=== PATIENT | female | born 1970 | race Caucasian/White ===

== ENCOUNTER 2018-01-05 07:11 | Day surgery (SDC) | payer OTHER ==
[~2018-01-05] VITALS: Ht 154.9 cm; Wt 57.6 kg
[2018-01-05 08:16] LABS: UCG SCREEN NEGATIVE
[2018-01-05] MEDS ORDERED: MORPHINE SULFATE 4 MG/ML CPJ (NOT FOR IM USE) IV PRN (09:15)
[2018-01-05] MEDS ORDERED: HYDROMORPHONE HCL/PF 2MG/ML CPJ IV PRN (09:15)
[2018-01-05] MEDS ORDERED: ONDANSETRON HCL 4MG/2ML INJ IV PRN (09:15)
[2018-01-05] MEDS ORDERED: MEPERIDINE HCL/PF 25MG/ML CPJ IV PRN (09:15)
[2018-01-05] MEDS ORDERED: FENTANYL CITRATE/PF 50MCG/ML 2ML VIAL IV PRN (09:15)
[2018-01-05] MEDS ORDERED: METHYLPREDNISOLONE SOD SUCC 40 MG/ML VIAL ONE (09:18)
[2018-01-05] MEDS ORDERED: TOBRAMYCIN SULFATE 80MG/2ML 30ML ONE (09:18)
[2018-01-05] MEDS ORDERED: FERR325T6 PO (10:13)
[2018-01-05] MEDS ORDERED: OFLOXACIN 0.3% OPHTH SOLN 5ML ONE (14:27)
[2018-01-05] MEDS ORDERED: TETRACAINE 0.5% OPHTH DROPS 4ML ONE (14:27)
[2018-01-05] MEDS ORDERED: NEO/POLYMYX B SULF/DEXAMETH OPHTH OINT 3.5GM ONE (14:27)
[2018-01-05] MEDS ORDERED: LIDOCAINE HCL 2%/EPINEPHRINE 1:100,000 20 ML VIAL INFIL ONE (14:27)
[2018-01-05] MEDS ORDERED: BUPIVACAINE HCL/PF 0.75% (7.5MG/ML) 10ML ONE (14:27)
== END 2018-01-05 11:05 | disposition home or self-care (01) ==
LOC: OR 07:11
PROVIDERS: ATTEND Ophthalmology
DX: H11.002 Unspecified pterygium of left eye (principal); H40.1130 Primary open-angle glaucoma, bilateral, stage unspecified; E55.9 Vitamin D deficiency, unspecified; Z79.899 Other long term (current) drug therapy; Z98.51 Tubal ligation status
CPT/HCPCS: 65420; 71045; 81025; 82962; 88304; J2920; J3260; J3490; J7030

== ENCOUNTER 2018-07-12 08:16 | Day surgery (SDC) | payer OTHER ==
[~2018-07-12] VITALS: Ht 149.9 cm; Wt 52.6 kg
[~2018-07-12 08:16] MED LIST: CIPROFLOXACIN 0.3% OPHTH SOLN 2.5ML RIGHTEYE ONE; FERR325T6 PO
[2018-07-12] MEDS ORDERED: CIPROFLOXACIN 0.3% OPHTH SOLN 2.5ML RIGHTEYE SCH (09:00)
[2018-07-12 10:09] LABS: UCG SCREEN NEGATIVE
[2018-07-12] MEDS ORDERED: TOBRAMYCIN SULFATE 80MG/2ML 30ML ONE (10:23)
[2018-07-12] MEDS ORDERED: METHYLPREDNISOLONE SOD SUCC 40 MG/ML VIAL ONE (10:23)
[2018-07-12] MEDS ORDERED: BALANCED SALT IRRIG SOLN 15ML ONE (11:00)
[2018-07-12] MEDS ORDERED: LIDOCAINE HCL 2%/EPINEPHRINE 1:100,000 20 ML VIAL INFIL ONE (11:00)
[2018-07-12] MEDS ORDERED: TETRACAINE 0.5% OPHTH DROPS 4ML ONE (11:00)
[2018-07-12] MEDS ORDERED: MIDAZOLAM HCL 2 MG/2 ML VIAL ONE ×2 (11:06→11:10)
[2018-07-12] MEDS ORDERED: SITA100T11 PO (11:09)
[2018-07-12] MEDS ORDERED: ACETAMINOPHEN 500MG TABLET PO PRN (11:15)
[2018-07-12] MEDS ORDERED: SODIUM CHLORIDE 0.9% 1,000 ML IV ONE (11:27)
[2018-07-12] MEDS ORDERED: HYDROMORPHONE HCL/PF 2MG/ML CPJ IV PRN (11:30)
[2018-07-12] MEDS ORDERED: ONDANSETRON HCL 4MG/2ML INJ IV PRN (11:30)
[2018-07-12] MEDS ORDERED: IBUPROFEN 600MG TABLET PO NR (11:30)
[2018-07-12 12:52] VITALS: BP 162/87
[2018-07-13] MEDS ORDERED: SODIUM CHLORIDE 0.9% 1,000 ML IV SCH (08:00)
== END 2018-07-12 14:05 | disposition home or self-care (01) ==
LOC: OR 08:16
PROVIDERS: ATTEND Ophthalmology
DX: H11.001 Unspecified pterygium of right eye (principal); H40.10X0 Unspecified open-angle glaucoma, stage unspecified; E11.9 Type 2 diabetes mellitus without complications; I10 Essential (primary) hypertension
CPT/HCPCS: 65426; 81025; 82962; 88304; J2250; J2920; J3260; J3490

== ENCOUNTER 2019-12-29 20:18 | Emergency (ER) | payer OTHER ==
[~2019-12-29] VITALS: Ht 149.9 cm; Wt 58.0 kg
[~2019-12-29 20:18] MED LIST changes: -CIPROFLOXACIN 0.3% OPHTH SOLN 2.5ML RIGHTEYE ONE; -FERR325T6 PO; +SITA100T11 PO
[2019-12-29] MEDS ORDERED: IBUPROFEN 600MG TABLET PO ONE (20:45)
[2019-12-29] MEDS ORDERED: AMLODIPINE 5MG TABLET PO ONE (21:15)
[2019-12-29 21:42] VITALS: BP 175/78
== END 2019-12-29 21:44 | disposition home or self-care (01) ==
LOC: ER 20:18
DX: S60.031A Contusion of right middle finger without damage to nail, initial encounter (principal); I10 Essential (primary) hypertension; E11.9 Type 2 diabetes mellitus without complications; Z98.890 Other specified postprocedural states; W22.8XXA Striking against or struck by other objects, initial encounter; Y93.89 Activity, other specified; Y92.810 Car as the place of occurrence of the external cause
CPT/HCPCS: 73140; 99283

== ENCOUNTER 2020-02-04 22:08 | Emergency (ER) | payer OTHER ==
[~2020-02-04] VITALS: Ht 152.4 cm; Wt 49.0 kg
[2020-02-05 01:15] VITALS: BP 159/75
[2020-02-05] MEDS ORDERED: GABAPENTIN 100MG CAPSULE PO SCH (02:00)
== END 2020-02-05 01:30 | disposition home or self-care (01) ==
LOC: ER 22:08
DX: G62.9 Polyneuropathy, unspecified (principal); I10 Essential (primary) hypertension; E11.9 Type 2 diabetes mellitus without complications; Z98.890 Other specified postprocedural states
CPT/HCPCS: 93005; 99284